=== PATIENT | female | born 1970 | race Hispanic/Latino ===

== ENCOUNTER → 2019-12-02 07:51 | Outpatient (CLI) | payer OTHER, SELFPAY ==
--- NOTE | ~2019-12-02 | MR_ITS ---
EXAMINATION: MR foot LT wo con DATE: 12/02/2019 08:41 INDICATION: Left foot infection. TECHNIQUE: Magnetic resonance imaging (MRI) of the left foot was performed without intravenous contra st. Sequences included sagittal T1-weighted FSE and STIR FSE, long-axis PD-weighted FS FSE and PD-smitha ghted FSE, and short-axis PD-weighted FS FSE and T1-weighted FSE. COMPARISON: None FINDINGS: The lesser toes demonstrate dorsiflexion of the metatarsophalangeal joints and flexion of t he interphalangeal joints. No fracture. There is a skin marker dorsal to the second toe. There is margot ma of the second toe soft tissues with a dorsal skin defect. There is bone marrow edema in second mid dle phalanx and head and neck of second proximal phalanx characterized by decreased T1-weighted signa l intensity and increased T2-weighted signal intensity, consistent with osteomyelitis. 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 The flexor and extensor tendons are intact. There is mild fatty atrophy of much o f the musculature. There is subcutaneous edema in the forefoot with a dorsal predominance. IMPRESSION: 1. Osteomyelitis involving second middle phalanx and head and neck of second proximal phalanx. Reviewed, dictated and finalized at location A. IMPRESSION: 1. Osteomyelitis involving second middle phalanx and head and neck of second pr oximal phalanx.
== END ==
PROVIDERS: PCP Family Medicine; Visit Provider Podiatrist Foot & Ankle Surgery
DX: E13.621 Other specified diabetes mellitus with foot ulcer (principal); L97.529 Non-pressure chronic ulcer of other part of left foot with unspecified severity; M86.172 Other acute osteomyelitis, left ankle and foot
CPT/HCPCS: 73718

== ENCOUNTER 2020-10-17 16:22 | Outpatient (CLI) | payer OTHER, SELFPAY ==
--- NOTE | ~2020-10-17 | MM_ITS ---
EXAMINATION: MM screening isidro BI w casandra HISTORY: Screening mammogram TECHNIQUE: Craniocaudal and mediolateral oblique 3-D tomosynthesis images were obtained and synthetic 2-D images were generated. CAD analysis was submitted and interpreted. COMPARISON: 08/12/2017 BREAST PARENCHYMAL COMPOSITION: There are scattered areas of fibroglandular density. FINDINGS: Scattered benign-appearing calcifications are present. There is no evidence of suspicious m ass, calcification, or architectural distortion to suggest malignancy in either breast. There has bee n no suspicious interval change. IMPRESSION: 1. No mammographic evidence of malignancy. 2. Recommend routine screening mammography in one year. BI-RADS Category 2: Benign finding(s). Reviewed, dictated and finalized at location A.
== END 2020-10-17 16:23 | disposition home or self-care (01) ==
LOC: ANHIMG 16:26
PROVIDERS: PCP Family Medicine; Visit Provider Physician Assistant
DX: Z12.31 Encounter for screening mammogram for malignant neoplasm of breast (principal)
CPT/HCPCS: 77063; 77067

== ENCOUNTER 2021-06-18 12:16 | Outpatient (CLI) | payer OTHER, SELFPAY ==
--- NOTE | ~2021-06-18 | MMUS_ITS ---
EXAMINATION: MM diagnostic isidro RT w casandra, US breast RT limited HISTORY: Palpable right breast lump and pain TECHNIQUE: Additional 3-D tomosynthesis images of the right breast were performed and synthetic 2-D i mages were generated. CAD analysis was submitted and interpreted. High resolution Limited right breas t ultrasound was performed. COMPARISON: Comparison to multiple prior studies sequentially, with oldest reviewed study dated 04/2017. BREAST PARENCHYMAL COMPOSITION: . Breast composed of scattered areas of fibroglandular density FINDINGS: MAMMOGRAPHIC FINDINGS: There are no suspicious masses, calcifications or architectural distortion in the right breast to sug gest malignancy. ULTRASOUND: Limited right breast ultrasound: Normal heterogeneous echotexture without focal solid or cystic mass. IMPRESSION: 1. No evidence for malignancy in the right breast. 2. Routine yearly screening mammogram and regular clinical breast examination are recommended. BI-RADS Category 1: Negative Reviewed, dictated and finalized at location A. URY MILL OPERATOR IMPRESSION: 1. No evidence for malignancy in the right breast. 2. Routine yearly screening mammogram and regular clinical breast examination a re recommended. BI-RADS Category 1: Negative
== END 2021-06-18 12:17 | disposition home or self-care (01) ==
LOC: ANHIMG 12:17
PROVIDERS: PCP Family Medicine; Visit Provider Family Medicine
DX: R92.8 Other abnormal and inconclusive findings on diagnostic imaging of breast (principal)
CPT/HCPCS: 76642; 77061; 77065; G0279

== ENCOUNTER → 2021-08-21 07:59 | Outpatient (CLI) | payer OTHER, SELFPAY ==
--- NOTE | ~2021-08-21 | US_ITS ---
EXAMINATION: US abdomen limited DATE: 08/21/2021 08:19 INDICATION: Right upper quadrant pain TECHNIQUE: Multiple grayscale and Doppler ultrasound images of the abdomen were obtained. COMPARISON: None available FINDINGS: The head and body of the pancreas are normal. The pancreatic tail is obscured by bowel gas. The liver demonstrates increased echogenicity, heterogenous echotexture, and decreased through trans mission. No surface nodularity. Normal hepatopetal flow in the main portal vein. The gallbladder is n ormal with no abnormal wall thickening, pericholecystic fluid or stones. The dilated common bile duct measures 9 mm. There was no sonographic Contreras sign. IMPRESSION: 1. Dilated common bile duct of unclear etiology. Recommend correlation with liver function tests and consider further evaluation by ERCP or MRCP. Reviewed, dictated and finalized at location A. IMPRESSION: 1. Dilated common bile duct of unclear etiology. Recommend correlation with nestor er function tests and consider further evaluation by ERCP or MRCP.
== END ==
PROVIDERS: PCP Family Medicine; Visit Provider Physician Assistant Medical
DX: R10.11 Right upper quadrant pain (principal); R93.5 Abnormal findings on diagnostic imaging of other abdominal regions, including retroperitoneum
CPT/HCPCS: 76705

== ENCOUNTER 2022-01-24 16:19 | Outpatient (CLI) | payer BC, OTHER, SELFPAY ==
--- NOTE | ~2022-01-24 | US_ITS ---
EXAMINATION:US venous doppler LE LT INDICATION:Soft tissue disorder. TECHNIQUE: Multiple grayscale, color flow and Doppler images of the left knee lower extremity deep ve nous systems were obtained and reviewed. COMPARISON:No prior studies for comparison. FINDINGS: The common femoral, superficial femoral and popliteal veins demonstrate normal respiratory variation, augmentation and compressibility. Color flow is also seen within the posterior tibial, pe roneal, greater saphenous and profunda veins. IMPRESSION: 1: No lower extremity deep venous thrombosis. Reviewed, dictated and finalized at location A.
== END 2022-01-24 16:20 | disposition home or self-care (01) ==
LOC: ANHIMG 16:21
PROVIDERS: PCP Family Medicine; Visit Provider Family Medicine
DX: M79.89 Other specified soft tissue disorders (principal)
CPT/HCPCS: 93971

== ENCOUNTER 2022-03-11 15:02 | Emergency (ER) | payer BC, OTHER, SELFPAY ==
[2022-03-11] VITALS (14 sets, daily range): BP systolic 93–130; BP diastolic 66–69; PULSE 90–104; RESP 13–20; TEMP 36.7–36.8; O2SAT 96–100
--- NOTE | ~2022-03-11 | XR_ITS ---
EXAMINATION: XR chest 2V 03/11/2022 15:48 INDICATION: Weakness and dyspnea. PROCEDURE: 2 view chest COMPARISON: No prior studies for comparison. FINDINGS: The lungs are clear. The cardiomediastinal silhouette is within normal limits. There are no pleural effusions. There is no pneumothorax suspected. IMPRESSION: 1: NO ACUTE CARDIOPULMONARY DISEASE. Reviewed, dictated and finalized at location A. E SCHEDULER
--- NOTE | 2022-03-11 15:27 | ECG_ITS ---
Measurements Intervals [place] Rate: 102 P: 9 KS: 160 QRS: 34 QRSD: 75 T: 32 QT: 321 QTc: 420 Interpretive Statements SINUS TACHYCARDIA MINIMAL Q WAVES- INFERIOR LEADS BORDERLINE ECG NO PREVIOUS ECG AVAILABLE FOR COMPARISON Electronically Signed On 03-11-2022 17:47:40 SCARIFIER OPERATOR by Betito Hill D.O.
[2022-03-11 15:59] LABS: Basophils Percent Auto 0.3 % (0.2-1.2); Eosinophils Percent Auto 0.1 % (0-4.4); Hematocrit 38.1 % (37.0-47.0); Hemoglobin 12.1 g/dL (12.0-15.0); Immature Granulocyte Absolute 0.05 K/mm3 (0.00-0.031); Immature Granulocyte Percent A 0.7 % (0-0.5); Lymphocytes Absolute Auto 1.14 K/mm3 (0.9-3.2); Lymphocytes Percent Auto 15.1 % (18.3-44.2); Mean Corpuscular HGB Conc 31.8 g/dl (32-36); Mean Corpuscular Hemoglobin 25.9 pg (26-34); Mean Corpuscular Volume 81.6 fl (80-100); Mean Platelet Volume 11.9 fl (7.4-10.4); Monocytes Absolute Auto 0.8 K/mm3 (0.1-0.6); Monocytes Percent Auto 11.1 % (2.6-8.5); Neutrophils Absolute Auto 5.5 K/mm3 (1.3-6.7); Neutrophils Percent Auto 72.7 % (45.5-73.1); Platelet Count Result 194 k/mm3 (150-375); Red Blood Count 4.67 M/mm3 (4.2-5.4); Red Cell Distribution Width 16.8 % (11.5-14.5); White Blood Count 7.6 K/mm3 (4.5-10.0)
[2022-03-11 16:10] LABS: Alanine Aminotransferase 18 U/L (6-35); Albumin Level 4.5 g/dL (3.5-5.1); Alkaline Phosphatase 96 U/L (38-126); Anion Gap 14 mmol/L (8-16); Aspartate Amino Transferase 22 U/L (14-36); Bilirubin,Total 0.7 mg/dL (0.2-1.3); Blood Urea Nitrogen 11 mg/dL (7-17); Calcium 8.8 mg/dL (8.4-10.2); Carbon Dioxide 25 mmol/L (22-30); Chloride 98 mmol/L (98-107); Estimated CRCL calculation 84 ml/min; Estimated Glomerular Filt Rate > 60; Glucose 146 mg/dL (65-110); Potassium 3.5 mmol/L (3.4-5.0); Sodium 137 mmol/L (137-145)
[2022-03-11 16:35] LABS: Influenza A QL RT-PCR Negative (Negative); Influenza B QL RT-PCR Negative (Negative); SARS-CoV-2 RNA PCR Negative
--- NOTE | 2022-03-11 19:46 | ED.WEAKNESS ---
HPI - Weakness General Chief complaint: Weakness Stated complaint: weakness Time Seen by Provider: 03/11/22 19:20 History of Present Illness HPI Narrative: This is a 51-year-old female with past medical history of hypertension and diabetes, presented to the emergency department complaining of weakness for the past 2 weeks. Weakness is generalized, aggravated by physical exertion but not associated with chest pain or shortness of breath. Patient denies any fevers or chills, but does note weight gain during this time. She denies bleeding of any source and has no other complaints. Related Data Allergies Allergy/AdvReac Type Severity Reaction Status Date / Time No Known Allergies Allergy Verified 02/26/22 08:37 Review of Systems Review of Systems: CONSTITUTIONAL: Unanticipated weight gain denies fever, chills, or sweats. EYES: Denies visual changes, redness, or discharge. ENT: Denies rhinorrhea, congestion, sore throat, or otalgia. CARDIOVASCULAR: Denies chest pain, palpitations, or edema. RESPIRATORY: Dyspnea on exertion denies cough GASTROINTESTINAL: Denies abdominal pain, nausea, vomiting, or diarrhea. GENITOURINARY: Denies dysuria or hematuria. SKIN: Denies rash or itching. MUSCULOSKELETAL: Denies back pain, joint pain, or myalgia. NEUROLOGIC: Denies headache, numbness, dizziness, or weakness. PSYCHIATRIC: Denies anxiety or depression. COUNTS INCLUDE 234 BEDS AT THE [facility] Past Medical History Medical History Abdominal bloating Common bile duct dilatation Diabetes mellitus Early satiety GERD (gastroesophageal reflux disease) Hypertension Obesity (BMI 30-39.9) Right upper quadrant abdominal pain Surgical History Surgical History Hx of section (~1998) Hx of section (~2001) Family History Family History Mother Diabetes mellitus, Onset Age: 72 Cerebrovascular accident, Onset Age: 72 Family history of arthritis, Onset Age: 72 Sibling Diabetes mellitus Patient's sister is in good health Patient's brother is in good health Father Asthma Patient's father is in good health Family history of alcoholism Other Family history of malignant neoplasm Family history of osteoporosis Social History Social History Smoking status: Never smoker Second hand tobacco smoke exposure: No Alcohol intake: current Alcohol use details: rare Substance use: never Substance use type: does not use Gender identity (if verbalized by the patient): Female Exam Narrative: GENERAL: Well-developed, well-nourished, and in no acute distress. HEAD: Normocephalic, atraumatic. EYES: PERRLA and EOMI. ENT: Nares clear, no rhinorrhea or epistaxis. Mucous membranes moist. Oropharynx without tonsillar hypertrophy exudate or other lesions. NECK: Supple. No adenopathy or masses. No carotid bruits or JVD CHEST: Clear to auscultation. No respiratory distress. No wheezes rales or rhonchi HEART: Regular rate and rhythm. No murmur heard. Normal peripheral pulses. ABDOMEN: Soft, nontender, nondistended, normal active bowel sounds. EXTREMITIES: Normal range of motion. No edema. SKIN: Warm, dry, no rash. NEURO: No focal deficits. Alert and oriented x3. PSYCH: Normal mood and affect. Course Course Emergency Course: 21:02 - UA consistent with UTI. Patient's heart rate improved with IV fluids. Chemistries nonconcerning for kidney injury. CBC consistent with microcytosis without anemia. Patient negative for COVID and flu. She was given first dose of antibiotics in the emergency department and discharged with Bactrim. Will discharge with the same. Discussed return emergency precautions including signs/symptoms of sepsis and ACS. The patient voiced understanding and is comfortable with plan. All questions a
[2022-03-11] MEDS: SODIUM CHLORIDE 0.9% IV 1,000 ML 999 ML IV CONT (19:58)
[2022-03-11 20:34] LABS: Appearance Urine Cloudy (Clear); Bilirubin Urine Negative (Negative); Blood Urine 2+ (Negative); Color Urine Yellow (Yellow); Glucose Urine UA 3+ mg/dL (Negative); Ketones Urine 1+ mg/dL (Negative); Leukocyte Esterase Ur Trace LEU/UL (Negative); Nitrate Urine Positive (Negative); Protein Urine Negative (Negative); Specific Grav Ur 1.015 (1.001-1.035); Urobilinogen Urine 0.2 mg/dL (<2.0); pH Urine 5.5 (5.0-9.0)
[2022-03-11 20:43] LABS: Bacteria Urine Trace /hpf; Mucus Urine Rare /lpf; Squamous Epithelial Cell Urine Many /hpf (Few); WBC Urine 31-50 /hpf
[2022-03-11 21:00] LABS: Thyroid Stimulating Hormone Reflex 0.574 uIU/mL (0.465-4.68)
[2022-03-11] MEDS: SULFAMETHOXAZOLE/TRIMETHOPRIM 800/160 MG DS TABLET 1 TAB PO (21:07)
[2022-03-11 21:09] LABS: Add Urine Microscopic? YES
== END 2022-03-11 21:16 | disposition home or self-care (01) ==
PROVIDERS: Family Medicine; Emergency Provider Preventive Medicine Aerospace Medicine; PCP Family Medicine
DX: N39.0 Urinary tract infection, site not specified (principal); R53.83 Other fatigue; Z20.822 Contact with and (suspected) exposure to COVID-19; E11.9 Type 2 diabetes mellitus without complications; I10 Essential (primary) hypertension; K21.9 Gastro-esophageal reflux disease without esophagitis; E66.9 Obesity, unspecified; Z68.41 Body mass index [BMI] 40.0-44.9, adult; Z79.4 Long term (current) use of insulin; Z79.84 Long term (current) use of oral hypoglycemic drugs; R00.0 Tachycardia, unspecified
CPT/HCPCS: 36415; 71046; 80053; 81001; 84443; 85025; 87077; 87086; 87186; 87636; 93005; 96360; 99283; A9270; J7030